=== PATIENT | female | born 1935 | race Caucasian/White ===

== ENCOUNTER 2017-09-14 09:51 | Emergency (ER) | payer MEDICARE ==
[~2017-09-14] VITALS: Ht 157.5 cm; Wt 68.0 kg
[2017-09-14 09:57] VITALS: BP 160/75; PULSE 90; RESP 22; TEMP 97.7; O2SAT 97
[2017-09-14] MEDS ORDERED: METF1000 PO (10:04)
[2017-09-14] MEDS ORDERED: LEVO25TA4 PO (10:07)
[2017-09-14] MEDS ORDERED: LOSA50TA PO (10:10)
[2017-09-14] MEDS ORDERED: LOVA40TA PO (10:10)
[2017-09-14] MEDS ORDERED: METF850T PO (10:10)
[2017-09-14] MEDS ORDERED: FOLI400T PO (10:10)
[2017-09-14] MEDS ORDERED: ASPI81TA23 PO (10:10)
[2017-09-14] MEDS ORDERED: AMLO10TA2 PO (10:10)
[2017-09-14] MEDS ORDERED: LEVO88TA2 PO (10:10)
--- NOTE | 2017-09-14 10:41 | PD ---
HPI Chief Complaint: Musculoskeletal Complaint Time Seen by Provider: 10:37 Travel History International Travel<30 days: No Contact w/Intl Traveler<30days: No Traveled to known affect area: No History of Present Illness HPI 82-year-old female patient with history of hypertension, high cholesterol, diabetes, presents to the ER today because she woke up this morning with a right shoulder pain. She states that it gets worse with sitting up, currently states that it is barely there when she lays down but when she sat up she says it is about a 10 out of 10. She denies any nausea, vomiting, shortness of breath, or other symptoms. She states it gets worse when she walks. She had trouble going to the grocery store today. Modifying Factors: Worse with sitting up and walking Associated Signs & Symptoms: Right shoulder pain Risk Factors: Elderly PFSH Past Medical History High Cholesterol: Yes Diabetes: Yes Patient Takes Glucophage: Yes Hypertension: Yes Thyroid Disease: Yes Past Surgical History Cholecystectomy: Yes Hysterectomy: Yes Joint Replacement: Yes (RIGHT KNEE) Other Surgery: Yes (CAROTID ENDARDARECTOMY) Social History Alcohol Use: Yes (OCC) Tobacco Use: No Substance Use: No Allergies-Medications (Allergen,Severity, Reaction): Coded Allergies: No Known Allergies (Verified Allergy, Mild, 11/13/04) Reported Meds & Prescriptions Reported Meds & Active Scripts Active Reported Losartan (Losartan Potassium) 50 Mg Tab 50 Mg PO DAILY Folic Acid 0.4 Mg Tab Unknown Dose PO DAILY Aspirin EC (Aspirin) 81 Mg Tabdr 81 Mg PO DAILY Lovastatin 40 Mg Tab 40 Mg PO DAILY Amlodipine (Amlodipine Besylate) 10 Mg Tab 10 Mg PO DAILY Levothyroxine (Levothyroxine Sodium) 88 Mcg Tab 88 Mcg PO DAILY Metformin (Metformin HCl) 850 Mg Tab 850 Mg PO BIDPC Review of Systems Except as stated in HPI: all other systems reviewed are Neg Physical Exam Narrative GENERAL: Well-developed elderly white female patient currently in mild distress. Awake and oriented 3. SKIN: Focused skin assessment warm/dry. HEAD: Atraumatic. Normocephalic. EYES: Pupils equal and round. No scleral icterus. No injection or drainage. ENT: No nasal bleeding or discharge. Mucous membranes pink and moist. NECK: Trachea midline. No JVD. Supple. No midline C-spine tenderness. CARDIOVASCULAR: Regular rate and rhythm. No murmur appreciated. Pulses are present and equal bilaterally. RESPIRATORY: No accessory muscle use. Clear to auscultation. Breath sounds equal bilaterally. GASTROINTESTINAL: Abdomen soft, non-tender, nondistended. Hepatic and splenic margins not palpable. MUSCULOSKELETAL: No obvious deformities. No clubbing. No cyanosis. No edema. Right shoulder is nontender to palpation, nontender range of motion of the right shoulder. NEUROLOGICAL: Awake and alert. No obvious cranial nerve deficits. Motor grossly within normal limits. Normal speech. PSYCHIATRIC: Appropriate mood and affect; insight and judgment normal. Data Data Last Documented VS Vital Signs Date Time Temp Pulse Resp B/P (MAP) Pulse Ox O2 Delivery O2 Flow Rate FiO2 09/14/17 09:57 97.7 90 22 160/75 (103) 97 Orders Orders Electrocardiogram (09/14/17 10:37) Ckmb (Isoenzyme) Profile (09/14/17 10:37) Complete Blood Count With Diff (09/14/17 10:37) Comprehensive Metabolic Panel (09/14/17 10:37) Magnesium (Mg) (09/14/17 10:37) Prothrombin Time / Inr (Pt) (09/14/17 10:37) Act Partial Throm Time (Ptt) (09/14/17 10:37) Troponin I (09/14/17 10:37) Ecg Monitoring (09/14/17 10:37) Bilateral Bp Monitoring (09/14/17 10:37) Iv Access Insert/Monitor (09/14/17 10:37) Oximetry (09/14/17 10:37) Oxygen Administration (09/14/17 10:37) Aspirin (Aspirin) (09/14/17 10:45) Sodium Chloride 0.9% Flush (Ns Flush) (09/14/17 10:45) Chest, Pa & Lat (09/14/17 10:37) Shoulder, Limited(2vws) (09/14/17 10:38) Tramadol-Acetamin 37.5-325 Mg (Ultracet (09/14/17 12:00) Ed Discharge Order (09/14/17 11:54) Labs Laboratory Tests Test 09/14/17 10:48 White Blood Count 6.5 TH/MM3 Red Blood Count 5.26 MIL/MM3 Hemoglobin 13.9 GM/DL Hematocrit 43.1 % Mean Corpuscular Volume 81.9 FL Mean Corpuscular Hemoglobin 26.4 PG Mean Corpuscular Hemoglobin Concent 32.3 % Red Cell Distribution Width 15.3 % Platelet Count 301 TH/MM3 Mean Platelet Volume 8.3 FL Neutrophils (%) (Auto) 65.7 % Lymphocytes (%) (Auto) 20.2 % Monocytes (%) (Auto) 9.4 % Eosinophils (%) (Auto) 3.8 % Basophils (%) (Auto) 0.9 % Neutrophils # (Auto) 4.3 TH/MM3 Lymphocytes # (Auto) 1.3 TH/MM3 Monocytes # (Auto) 0.6 TH/MM3 Eosinophils # (Auto) 0.2 TH/MM3 Basophils # (Auto) 0.1 TH/MM3 CBC Comment DIFF FINAL Differential Comment Prothrombin Time 9.5 SEC Prothromb Time International Ratio 0.9 RATIO Activated Partial Thromboplast Time 22.4 SEC Blood Urea Nitrogen 27 MG/DL Creatinine 1.53 MG/DL Random Glucose 121 MG/DL Total Protein 7.6 GM/DL Albumin 4.1 GM/DL Calcium Level 9.4 MG/DL Magnesium Level 2.3 MG/DL Alkaline Phosphatase 68 U/L Aspartate Amino Transf (AST/SGOT) 9 U/L Alanine Aminotransferase (ALT/SGPT) 14 U/L Total Bilirubin 0.4 MG/DL Sodium Level 137 MEQ/L Potassium Level 4.5 MEQ/L Chloride Level 106 MEQ/L Carbon Dioxide Level 20.1 MEQ/L Anion Gap 11 MEQ/L Estimat Glomerular Filtration Rate 32 ML/MIN Total Creatine Kinase 42 U/L Troponin I LESS THAN 0.02 NG/ML MDM Medical Decision Making Medical Screen Exam Complete: Yes Emergency Medical Condition: Yes Medical Record Reviewed: Yes Interpretation(s) EKG shows normal sinus rhythm at a rate of as per minute. There is a partial right bundle branch block pattern. No signs of acute ST elevations or depressions. Laboratory Tests Test 09/14/17 10:48 Mean Corpuscular Hemoglobin 26.4 PG (27.0-34.0) Monocytes (%) (Auto) 9.4 % (0.0-8.0) Prothrombin Time 9.5 SEC (9.8-11.6) Activated Partial Thromboplast Time 22.4 SEC (24.3-30.1) Blood Urea Nitrogen 27 MG/DL (7-18) Creatinine 1.53 MG/DL (0.50-1.00) Random Glucose 121 MG/DL (74-106) Aspartate Amino Transf (AST/SGOT) 9 U/L (15-37) Carbon Dioxide Level 20.1 MEQ/L (21.0-32.0) Estimat Glomerular Filtration Rate 32 ML/MIN (>89) Troponin I LESS THAN 0.02 NG/ML Last 24 hours Impressions Shoulder X-Ray 09/14/17 1038 Signed Impressions: CONCLUSION: No acute right shoulder abnormality is identified. 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 Chest X-Ray 09/14/17 1037 Signed Impressions: CONCLUSION: No acute cardiopulmonary abnormality is identified. Differential Diagnosis Right shoulder pain: Muscular skeletal versus atypical angina versus diaphragmatic irritation versus cervical radiculopathy Narrative Course EKG did not show any signs of dysrhythmias or ST elevations or depressions. Chest x-ray and x-ray of the shoulder did not show any signs of acute processes. She does have some arthritis in the AC joint which could be contributing to her pain. Lab work did not show significant cardiac enzyme elevation or any signs of electrolyte abnormalities. At this point, I have talked to the patient regarding findings and have offered to admit her to chest pain center since this could represent an atypical type cardiac pain however, patient states is positional, states that she is aware that this could be cardiac but at this point has had her heart checked out last year and they state it was okay, is comfortable with leaving and following up as an outpatient. Return for worsening in symptoms as needed. The plan has been discussed with her and she states understanding. Diagnosis Primary Impression: Right shoulder pain Med/Other Pt SpecificInfo: Prescription(s) given Scripts Tramadol-Acetaminophen (Tramadol-Acetaminophen) 37.5-325 mg Tab 1 TAB PO Q6H Y for PAIN, #7 TAB 0 Refills Prov: Jose Cortes MD 09/14/17 Disposition: 01 DISCHARGE HOME Condition: Stable Jose Cortes MD Sep 14, 2017 10:41
[2017-09-14] MEDS ORDERED: ASPIRIN 325 MG TAB PO ONE (10:45)
[2017-09-14] MEDS ORDERED: SODIUM CHLORIDE 0.9% FLUSH 10 ML FLUSH IVF PRN (10:45)
[2017-09-14 11:25] LABS: AUTOMATED NEUTROPHIL # 4.3 TH/MM3 (1.8-7.7); BASOPHIL # 0.1 TH/MM3 (0-0.2); BASOPHIL % 0.9 % (0.0-2.0); EOSINOPHIL # 0.2 TH/MM3 (0-0.4); EOSINOPHIL % 3.8 % (0.0-4.0); HEMATOCRIT 43.1 % (35.0-46.0); HEMOGLOBIN 13.9 GM/DL (11.6-15.3); LYMPH % 20.2 % (9.0-44.0); LYMPHOCYTE # 1.3 TH/MM3 (1.0-4.8); MEAN CELL VOLUME 81.9 FL (80.0-100.0); MEAN CORPUSCULAR HEMOGLOBIN 26.4 PG (27.0-34.0); MEAN CORPUSCULAR HGB CONC 32.3 % (32.0-36.0); MEAN PLATELET VOLUME 8.3 FL (7.0-11.0); MONO % 9.4 % (0.0-8.0); MONOCYTE # 0.6 TH/MM3 (0-0.9); NEUT % 65.7 % (16.0-70.0); PLATELET COUNT 301 TH/MM3 (150-450); RED BLOOD COUNT 5.26 MIL/MM3 (4.00-5.30); RED CELL DISTRIBUTION WIDTH 15.3 % (11.6-17.2); WHITE BLOOD COUNT 6.5 TH/MM3 (4.0-11.0)
--- NOTE | 2017-09-14 11:25 | RADRPT ---
EXAM DATE: 09/14/2017 11:13 AM EDT AGE/SEX: 82 years / Female INDICATIONS: Right shoulder pain without trauma. CLINICAL DATA: This is the patient's initial encounter. Patient reports that signs and symptoms have been present for 1 day and indicates a pain score of 6/10. MEDICAL/SURGICAL HISTORY: None. None. None. COMPARISON: No prior exams available for comparison. FINDINGS: 2 views of the right shoulder demonstrate no fracture or dislocation. Acromioclavicular joint is inta ct with mild osteoarthritis. No soft tissue abnormality is identified. Visualized chest demonstrates no acute finding. There is atherosclerotic calcification of the aorta. CONCLUSION: No acute right shoulder abnormality is identified. There is osteoarthritis at the acromioclavicular j oint. Electronically signed by: Esa Judd MD 09/14/2017 11:24 AM EDT
--- NOTE | 2017-09-14 11:26 | RADRPT ---
EXAM DATE: 09/14/2017 11:12 AM EDT AGE/SEX: 82 years / Female INDICATIONS: Right shoulder/chest pain. CLINICAL DATA: This is the patient's initial encounter. Patient reports that signs and symptoms have been present for 1 day and indicates a pain score of 5/10. MEDICAL/SURGICAL HISTORY: None. None. COMPARISON: No prior exams available for comparison. FINDINGS: PA and lateral views of the chest demonstrate a normal-sized cardiac silhouette. There is no effusion , consolidation, or pneumothorax. The bones and soft tissues demonstrate no acute abnormality. There is calcification of the aorta. CONCLUSION: No acute cardiopulmonary abnormality is identified. Electronically signed by: Esa Judd MD 09/14/2017 11:25 AM EDT
[2017-09-14 11:37] LABS: INTERNATIONAL NORMALIZED RATIO 0.9 RATIO; PROTHROMBIN TIME - PATIENT 9.5 SEC (9.8-11.6)
[2017-09-14 11:38] LABS: ALBUMIN 4.1 GM/DL (3.4-5.0); AST (GOT) 9 U/L (15-37); BICARBONATE 20.1 MEQ/L (21.0-32.0); BLOOD UREA NITROGEN 27 MG/DL (7-18); CALCIUM 9.4 MG/DL (8.5-10.1); CHLORIDE 106 MEQ/L (98-107); CREATININE 1.53 MG/DL (0.50-1.00); GLOMERULAR FILTRATION RATE 32 ML/MIN (>89); GLUCOSE,RANDOM 121 MG/DL (74-106); MAGNESIUM 2.3 MG/DL (1.5-2.5); SODIUM (NA) 137 MEQ/L (136-145)
[2017-09-14 11:43] LABS: ALKALINE PHOSPHATASE 68 U/L (45-117); ALT (GPT) 14 U/L (10-53); TOTAL BILIRUBIN ADULT 0.4 MG/DL (0.2-1.0); TOTAL PROTEIN 7.6 GM/DL (6.4-8.2); TROPONIN I LESS THAN 0.02 NG/ML (0.02-0.05)
[2017-09-14] MEDS ORDERED: TRAM-388 PO (11:57)
[2017-09-14] MEDS ORDERED: traMADol HCL 50 MG TAB PO ONE (12:00)
[2017-09-14] MEDS ORDERED: traMADol/ACETAMINOPHEN 37.5/325 1 TAB PO ONE (12:00)
--- NOTE | 2017-09-15 23:18 | EKG ---
Date Performed: 09/14/2017 Time Performed: 10:53:57 PTAGE: 82 years EKG: Sinus rhythm RIGHT BUNDLE BRANCH BLOCK ABNORMAL ECG PREVIOUS TRACING : 11/09/2004 10.14 DOCTOR: Daniela Farr Interpretating Date/Time 09/15/2017 23:05:18
== END 2017-09-14 12:16 | disposition home or self-care (01) ==
LOC: NEPE 09:51
DX: M25.511 Pain in right shoulder (principal); R94.31 Abnormal electrocardiogram [ECG] [EKG]; R07.9 Chest pain, unspecified; E78.00 Pure hypercholesterolemia, unspecified; I10 Essential (primary) hypertension; E11.9 Type 2 diabetes mellitus without complications; Z79.84 Long term (current) use of oral hypoglycemic drugs; Z79.899 Other long term (current) drug therapy
CPT/HCPCS: 71046; 73030; 80053; 82550; 83735; 84484; 85025; 85610; 85730; 93005; 99285

== ENCOUNTER 2017-09-15 10:21 | Emergency (ER) | payer MEDICARE ==
[~2017-09-15 10:21] MED LIST: AMLO10TA2 PO; ASPI81TA23 PO; FOLI400T PO; LEVO25TA4 PO; LEVO88TA2 PO; LOSA50TA PO; LOVA40TA PO; METF1000 PO; METF850T PO; TRAM-388 PO
[2017-09-15 10:30] VITALS: BP 122/60; PULSE 80; RESP 16; TEMP 97.1; O2SAT 97
--- NOTE | 2017-09-15 12:13 | PD ---
HPI Chief Complaint: Pain: Acute or Chronic Time Seen by Provider: 11:52 Travel History International Travel<30 days: No Contact w/Intl Traveler<30days: No Traveled to known affect area: No History of Present Illness HPI 82-year-old female presents to the emergency room for evaluation of right upper extremity pain and numbness and tingling started upon waking this morning. Patient was just seen in the emergency room yesterday for right shoulder pain. She had a complete cardiac workup that was negative. X-ray of the shoulder showed osteoarthritis of the AC joint. Pain is positional. She was discharged with prescription for tramadol. States she has been taking the medication and it seems to be improving her symptoms. States she became concerned this morning because her whole right arm, especially her hand was numb upon waking. She states while sitting in the emergency room, her symptoms have resolved and only the tip of her second finger is still numb. Patient does report history of neck pain a few weeks ago that resolved on its own. States she thinks she slept on her neck wrong. She has not seen a primary care physician for neck pain or shoulder pain yet. PFSH Past Medical History High Cholesterol: Yes Diabetes: Yes Hypertension: Yes Thyroid Disease: Yes ?: Not Past Surgical History Cholecystectomy: Yes Hysterectomy: Yes Joint Replacement: Yes (RIGHT KNEE) Other Surgery: Yes (CAROTID ENDARDARECTOMY) Social History Alcohol Use: Yes (OCC) Tobacco Use: No Substance Use: No Allergies-Medications (Allergen,Severity, Reaction): Coded Allergies: No Known Allergies (Verified Allergy, Mild, 09/15/17) Reported Meds & Prescriptions Reported Meds & Active Scripts Active Tramadol-Acetaminophen 37.5-325 mg Tab 1 Tab PO Q6H PRN Reported Losartan (Losartan Potassium) 50 Mg Tab 50 Mg PO DAILY Folic Acid 0.4 Mg Tab Unknown Dose PO DAILY Aspirin EC (Aspirin) 81 Mg Tabdr 81 Mg PO DAILY Lovastatin 40 Mg Tab 40 Mg PO DAILY Amlodipine (Amlodipine Besylate) 10 Mg Tab 10 Mg PO DAILY Levothyroxine (Levothyroxine Sodium) 88 Mcg Tab 88 Mcg PO DAILY Metformin (Metformin HCl) 850 Mg Tab 850 Mg PO BIDPC Review of Systems Except as stated in HPI: all other systems reviewed are Neg Physical Exam Narrative GENERAL: Well-nourished, well-developed female no acute distress. Afebrile. Ambulatory. SKIN: No rashes, ecchymoses or lesions. Warm and dry. HEAD: Normocephalic. EYES: No scleral icterus. No injection or drainage. No midline tenderness of the cervical spine. NECK: Supple, trachea midline. No JVD or lymphadenopathy. CARDIOVASCULAR: Regular rate and rhythm without murmurs, gallops, or rubs. RESPIRATORY: Breath sounds equal bilaterally. No accessory muscle use. MUSCULOSKELETAL: No cyanosis, or edema. Full range of motion of the right upper extremity. Radial, ulnar, and median nerves intact. 2+ radial pulse. Positive Bakody's sign. Tenderness to palpation over the right scapular region. Data Data Last Documented VS Vital Signs Date Time Temp Pulse Resp B/P (MAP) Pulse Ox O2 Delivery O2 Flow Rate FiO2 09/15/17 10:30 97.1 80 16 122/60 (80) 97 Orders Orders Ed Discharge Order (09/15/17 12:13) [facility] Medical Decision Making Medical Screen Exam Complete: Yes Emergency Medical Condition: Yes Medical Record Reviewed: Yes Differential Diagnosis Pinched nerve, cervical strain, shoulder pain, arthritis, paresthesias Narrative Course 82-year-old female presents to the emergency room for evaluation of right upper extremity pain, numbness, and tingling that started when she woke up this morning. States while she was in the emergency room, symptoms have resolved. Symptoms also improve with shoulder abduction. Patient has no midline tenderness of the cervical spine. She was seen yesterday for right arm/ shoulder pain which was found to be positional, noncardiac. She was discharged with tramadol. States that improves her symptoms. Right upper extremity is neurovascularly intact with 2+ radial pulse. Radial, ulnar, and median nerves intact. Patient was told to follow-up for outpatient MRI of her spine as I suspect cervical radiculopathy/nerve impingement. Told to return for worsening symptoms. She understands and agrees to plan. Diagnosis Primary Impression: Pinched cervical nerve root Referrals: Primary Care Physician Additional Instructions: Take prescribed tramadol as directed, as needed for pain. Follow-up the primary care physician for possible outpatient MRI of neck. Return to the emergency room for any worsening symptoms. Disposition: 01 DISCHARGE HOME Condition: Stable Marizol Fine Sep 15, 2017 12:13
== END 2017-09-15 12:19 | disposition home or self-care (01) ==
LOC: NEPK 10:21
DX: G58.8 Other specified mononeuropathies (principal); I10 Essential (primary) hypertension; E78.00 Pure hypercholesterolemia, unspecified; E11.9 Type 2 diabetes mellitus without complications; E07.9 Disorder of thyroid, unspecified; Z79.84 Long term (current) use of oral hypoglycemic drugs; Z79.899 Other long term (current) drug therapy
CPT/HCPCS: 99283